=== PATIENT | female | born 1975 | race Caucasian/White ===

== ENCOUNTER 2021-07-01 07:44 | Outpatient (REF) | payer BC, SELFPAY ==
--- NOTE | ~2021-07-01 | MM_ITS ---
EXAMINATION: MM SCREENING DIGITAL BREAST TOMOSYNTHESIS, BILATERAL CLINICAL INFORMATION: Screening. Asymptomatic. Family history breast cancer including mother. The lifetime risk of breast cancer based on the Tyrer-Cuzick Model is 22%. COMPARISON: Mammography: 04/30/2015, 04/25/2015 (baseline), right breast ultrasound 04/30/2015. TECHNIQUE: Digital breast tomosynthesis is performed in both the craniocaudal and mediolateral oblique views along with computer-aided detection (CAD). Synthesized 2D images are generated from the tomosynthesis. FINDINGS: There are scattered areas of fibroglandular density (ACR BI-RADS breast composition Category b). Right breast cysts noted on prior study are decreased to resolved. Parenchymal pattern is otherwise similar to prior exam. There is no developing density or interval architectural abnormality or abnormal calcifications. The axilla and skin contours are unremarkable. No significant changes. MM/MM tomosynthesis screening BI IMPRESSION: No mammographic evidence of malignancy. ASSESSMENT: BI-RADS 1: Negative RECOMMENDATION: 1. Routine annual mammography screening. 2. The lifetime risk of breast cancer based on the Tyrer-Cuzick Model is 22%. Additional annual adjunct screening with breast MRI may be of benefit in women with a risk score of 20% or greater. This patient's information was entered into a reminder system with a target due date for their next mammogram.
== END 2021-07-01 07:45 | disposition home or self-care (01) ==
LOC: HO.MAMMO 07:44
PROVIDERS: PCP Internal Medicine; Visit Provider Internal Medicine
DX: Z12.31 Encounter for screening mammogram for malignant neoplasm of breast (principal)
CPT/HCPCS: 77063; 77067

== ENCOUNTER 2024-05-12 22:52 | Emergency (ER) | payer BC, SELFPAY ==
--- NOTE | ~2024-05-12 | CT_ITS ---
CLINICAL HISTORY: L flank pain s p lithotripsy CT abdomen and pelvis without IV or oral contrast Comparison: None Findings: Lung bases show no active disease. No dependent layering pleural effusions. The heart is not enlarged. Single stone or layering stones spanning a length of 8 mm just proximal to the left UVJ with renal edema and mild hydroureteronephrosis on the left.Less than 5 mm nonobstructing caliceal stones left kidney. No evidence of obstructive uropathy on the right. Punctate caliceal stone right kidney. Evaluation of the liver, spleen, and pancreas demonstrates no lesions. Nodular thickening left adrenal gland. It should be noted that isodense masses may be obscured in the absence of intravenous contrast. Radiopaque gallstones. No pathologically enlarged lymph nodes . No ascites demonstrated. Decompressed urinary bladder. No vertebral body compression fractures or spondylolisthesis. No bony destructive lesions. Impression: 1. Single stone or layering stones spanning a length of 8 mm just proximal to the left UVJ with renal edema and mild hydroureteronephrosis on the left. 2. Bilateral less than 6 mm nonobstructing caliceal stones both kidneys. 3. Nodular thickening left adrenal gland. This document has been electronically signed by: Elmer Arnold MD on 05/13/2024 04:19:04
[2024-05-12 23:30] VITALS: BP 145/90; PULSE 108; RESP 20; TEMP 37; O2SAT 99; BMI 24.2
[2024-05-12 23:44] LABS: MANUAL DIFF FLAG NO
[2024-05-12 23:45] LABS: Basophils Absolute Auto 0.1 X10*3/uL (0.0-0.2); Basophils Percent Auto 0.6 % (0-2); Eosinophils Absolute Auto 0.1 X10*3/uL (0.0-0.4); Eosinophils Percent Auto 0.9 % (0-4); Imm Gran Abs Auto 0.06 X10*3/uL (0.00-0.03); Imm Gran Pct Auto 0.4 % (0.0-0.4); Lymphocytes Absolute Auto 1.9 X10*3/uL (1.2-4.9); Mean Corpuscular Hemoglobin 31.1 pg (27.0-33.0); Mean Corpuscular Volume 88.9 fL (80.0-98.0); Monocytes Absolute Auto 0.9 X10*3/uL (0.1-1.2); Monocytes Percent Auto 6.3 % (2-11); Neutrophils Absolute Auto 11.2 x10*3/uL (2.0-8.3); Neutrophils Percent Auto 78.8 % (45-73); Platelet Count 272 X10*3/uL (160-400); Red Cell Distribution Width 12.9 % (11.0-16.0); White Blood Count 14.2 X10*3/uL (4.8-10.8)
--- NOTE | 2024-05-12 23:57 | MHC.EDTECH ---
bladder scan attempted on patient. No visualization of bladder. Attempted by DOE Rose as well.
[2024-05-12 23:58] LABS: Alanine Aminotransferase 22 U/L (0-31); Albumin Level 4.2 g/dL (3.5-5.0); Alkaline Phosphatase 68 U/L (39-117); Anion Gap 14 (12-20); Aspartate Amino Transferase 18 U/L (5-31); Bilirubin Total 0.2 mg/dL (0.0-1.0); Blood Urea Nitrogen 11 mg/dL (9-16); Calcium 8.8 mg/dL (8.4-10.2); Carbon Dioxide 23 mmol/L (22-29); Chloride 108 mmol/L (96-108); Creatinine Clr Calc Pharmacy 101.1; Estimated Glomerular Filt Rate > 60; Glucose Random 121 mg/dL (60-115); Lipase 15 U/L (8-78); Potassium 4.1 mmol/L (3.3-5.1); Sodium 141 mmol/L (135-145); Total Protein 6.8 g/dL (6.5-8.0)
[2024-05-13 00:07] VITALS: BP 129/88; PULSE 99; RESP 16; TEMP 36.4; O2SAT 95
[2024-05-13] MEDS: Ondansetron ODT 4 MG TAB.RAPDIS TRANSLINGU (00:10)
[2024-05-13 01:39] LABS: Appearance Urine Cloudy; Color Urine Dark Yellow; Glucose Urine UA Negative (Negative); Leukocyte Esterase Urine Small (1+) (Negative); Nitrite Urine Positive (Negative); PH 6.5 (5.0-9.0); Specific Gravity - Urine 1.015 (1.005-1.025); UMIC TRIGGER UACC YES; Urine Blood Large (3+) (Negative); Urine Ketones Negative (Negative); Urine Protein 30 (1+) mg/dL (Neg-Trace)
[2024-05-13 01:47] LABS: Bacteria Urine None Seen (None Seen); Hyaline Casts Urine 0-2 /LPF (0-2); RBC Urine >20 /HPF (0-2); Squamous Epithelial Cell Urine 0-2 /HPF (0-2); UACC Culture Trigger YES; WBC Urine 0-5 /HPF (0-5)
[2024-05-13] MEDS: Ketorolac Tromethamine 30 MG/ML VIAL IVPUSH (01:53)
[2024-05-13] MEDS: 0.9 % Sodium Chloride 1,000 ML 999 ML IV (01:54)
[2024-05-13 02:13] VITALS: BP 123/80; PULSE 96; RESP 16; O2SAT 95
--- NOTE | 2024-05-13 02:38 | ED_ITS ---
HPI - Abdominal Pain General Chief Complaint: Abdominal Pain Stated Complaint: surgery 05/09 kidney stones/no bathroom since 12 Time Seen by Provider: 05/13/24 02:26 Source: patient Mode of arrival: ambulatory Limitations: no limitations History of Present Illness ED Provider: Dr. Genevieve Ramos HPI narrative: Patient comes to the emergency room complaining of left-sided flank pain that started approximately 14 hours ago. Patient states that 3 days ago, patient had a lithotripsy done. Patient states that for the last 2 days, she has had hematuria, no dysuria. However, patient states that she has been passing only drops of urine, no significant amount of fluid. Patient denies fever or chills. Related Data Previous Rx's ?Medication ?Instructions ?Recorded ketorolac 10 mg tablet 10 mg PO TID PRN pain #15 tabs 05/13/24 levofloxacin 500 mg tablet 500 mg PO DAILY #9 tabs 05/13/24 ondansetron HCl 4 mg tablet 4 mg PO Q6H PRN nausea and 05/13/24 vomiting #14 tabs tamsulosin 0.4 mg capsule 0.4 mg PO DAILY #14 caps 05/13/24 Allergies Allergy/AdvReac Type Severity Reaction Status Date / Time No Known Allergies Allergy Verified 05/12/24 23:32 Review of Systems Review of Systems Constitutional : No Weight loss, No Fever, No Chills, No Night Sweats, No Fatigue, No Malaise ENT/Mouth : No Hearing loss, No Ear Pain, No Nasal Congestion, No Sinus Pain, No Hoarseness, No sore throat, No Rhinorrhea, No Swallowing Difficulty Eyes: No Eye Pain, No Swelling, No Redness, No Foreign Body, No Discharge, No Vision Changes Cardiovascular : No Chest Pain, No SOB, No Dyspnea on Exertion, No Orthopnea, No Edema, No Palpitations Respiratory : No Cough, No Sputum, No Wheezing, No Smoke Exposure, No Dyspnea Gastrointestinal : No Nausea, No Vomiting, No Diarrhea, No Constipation, No abdominal Pain, No Hematochezia, No Melena Genitourinary : Complaining of urinating a very small amount. No Dysuria, No Urinary Frequency, No Hematuria, No Urinary Incontinence, No Urgency, complaining of left-sided Flank Pain Musculoskeletal : No joint pain, No Myalgias, No Joint Swelling Skin : No Skin Lesions, No rash Neuro : No Weakness, No Numbness, No Paresthesias, No Loss of Consciousness, No Dizziness, No Headache Psych : No Anxiety/Panic, No Depression, No SI/HI/AH/VH, No Social Issues, Heme/Lymph: No Bruising, No Bleeding,No Lymphadenopathy Endocrine : No Polyuria, No Polydipsia, No Temperature Intolerance [facility] Past Medical History Medical History (Updated 05/13/24 @ 04:42 by Genevieve Ramos MD) Ureterolithiasis Social History Social History Smoked in Last 30 Days: No Use of substances other than those prescribed or required for medical reasons: No Advance Directives: No Advance Directives Information Provided: Yes Do you have a plan to hurt others: No Plan Patient : No Physical Exam ED Vital Signs: Vital Signs - 24 hr 05/12/24 23:30 05/13/24 00:07 05/13/24 02:13 Temperature 98.6 F 97.6 F Pulse Rate 108 H 99 96 Respiratory Rate 20 16 16 Blood Pressure 145/90 H 129/88 123/80 Pulse Oximetry 99 95 95 Oxygen Delivery Method Room Air Room Air Room Air 05/13/24 04:17 Temperature 97.6 F Pulse Rate 87 Respiratory Rate 16 Blood Pressure 117/81 Pulse Oximetry 99 Oxygen Delivery Method Room Air BMI result Body Mass Index 24.2 Const Other: Appearance: Alert. Oriented X3. No acute distress. Eyes: Pupils equal, round and reactive to light. ENT: Pharynx normal. Neck: Normal inspection. Neck supple. No lymph nodes noted. No crepitus CVS: Normal heart rate and rhythm. Pulses normal. Normal S1 and S2 Respiratory: No respiratory distress. Breath sounds normal. No Wheezing. No rales Abdomen: Soft and nontender. No rigidity. No distention. Mild CVA tenderness on the left. Skin: Skin warm and dry. Normal skin color. Normal skin turgor. Extremities: No lower extremity edema. No Lacerations. No Rash Neuro: Oriented X 3. No motor deficit. No sensory deficit. Moving all extremities. No slurred speech. CN 2 through 12 grossly intact Psych: calm, cooperative, normal affect Course Course Course Narrative: Patient received IV Toradol and ondansetron on arrival, patient states that it did help with her pain in the nausea. Medical Decision Making Medical Decision Making [facility] Narrative: My interpretation of labs: White blood cell count 14.2 chemistry within normal limits, LFTs within normal limits, UTI positive. Patient has left-sided flank pain status post lithotripsy. We will obtain a CT scan to rule out hematoma developing. Patient was given 2 L of IV fluids. Patient reports not passing any urine for several hours. Bladder scan on arrival was negative for any fluid in the bladder. Patient also receiving levofloxacin IV. CT scan : There is a single stone or layering stones spanning a length of 8 mm just proximal to left UVJ. -Patient states that before the lithotripsy, her biggest stone was 11 mm Patient states that she is urinating, small amounts. There was no significant amount of urine in the bladder on CT scan. Discussed with the patient to keep drinking fluids. Patient does have a UTI. Combination of flank pain could be secondary to a UTI/pyelonephritis +/- pain from the kidney stones. I discussed with the patient the option of admission. Patient prefers to go home, if the pain does not resolve, she will return to emergency room. Differential Diagnosis Differential Diagnoses: The differential diagnosis associated with the presentation includes (BRENDA, renal hematoma, ureterolithiasis) Admission/Observation Consideration of admission/observation: Escalation of care including admission/observation considered (Given patient's history and presentation, observation has been considered) Lab Data MDM Lab Attestation statement: I reviewed the patient's lab results. 05/12/24 23:38 05/12/24 23:38 Labs: Lab Results 05/12/24 05/13/24 Range/Units 23:38 01:25 WBC 14.2 H (4.8-10.8) X10*3/uL RBC 4.50 (4.20-5.50) X10*6/uL Hgb 14.0 (12.0-16.0) g/dl Hct 40.0 (37.0-47.0) % MCV 88.9 (80.0-98.0) fL MCH 31.1 (27.0-33.0) pg MCHC 35.0 (31.0-35.0) g/dl RDW 12.9 (11.0-16.0) % Plt Count 272 (160-400) X10*3/uL MPV 9.0 L (9.4-12.3) fL Immature Gran % (Auto) 0.4 (0.0-0.4) % Neut % (Auto) 78.8 H (45-73) % Lymph % (Auto) 13.0 L (20-40) % [place] % (Auto) 6.3 (2-11) % Eos % (Auto) 0.9 (0-4) % Baso % (Auto) 0.6 (0-2) % Lymph # (Auto) 1.9 (1.2-4.9) X10*3/uL [place] # (Auto) 0.9 (0.1-1.2) X10*3/uL Eos # (Auto) 0.1 (0.0-0.4) X10*3/uL Baso # (Auto) 0.1 (0.0-0.2) X10*3/uL Abs Immat Gran (auto) 0.06 H (0.00-0.03) X10*3/uL Absolute Neuts (auto) 11.2 H (2.0-8.3) x10*3/uL Absolute Nucleated RBC 0.000 (0.0-0.012) X10*3/uL Nucleated RBC % (auto) 0.0 (0.0-0.2) /100WBC Sodium 141 (135-145) mmol/L Potassium 4.1 (3.3-5.1) mmol/L Chloride 108 (96-108) mmol/L Carbon Dioxide 23 (22-29) mmol/L Anion Gap 14 (12-20) BUN 11 (9-16) mg/dL Creatinine 0.63 (0.5-1.4) mg/dL Estim Creat Clear Calc 101.1 Estimated GFR > 60 Random Glucose 121 H (60-115) mg/dL Calcium 8.8 (8.4-10.2) mg/dL Total Bilirubin 0.2 (0.0-1.0) mg/dL AST 18 (5-31) U/L ALT 22 (0-31) U/L Alkaline Phosphatase 68 (39-117) U/L Total Protein 6.8 (6.5-8.0) g/dL Albumin 4.2 (3.5-5.0) g/dL Lipase 15 (8-78) U/L Urine Color Dark Yellow Urine Appearance Cloudy Urine pH 6.5 (5.0-9.0) Ur Specific [place] 1.015 (1.005-1.025) Urine Protein 30 (1+) H (Neg-Trace) mg/dL Urine Glucose (UA) Negative (Negative) mg/dL Urine Ketones Negative (Negative) mg/dL Urine Blood Large (3+) H (Negative) Urine Nitrite Positive H (Negative) Ur Leukocyte Esterase Small (1+) H (Negative) Urine RBC >20 H (0-2) /HPF Urine WBC 0-5 (0-5) /HPF Ur Squamous Epith Cells 0-2 (0-2) /HPF Urine Bacteria None Seen (None Seen) Hyaline Casts 0-2 (0-2) /LPF Independent Interpretation I performed an independent interpretation of an: CT Scan Radiology Impression Discussion of test interpretation with radiology: I have reviewed the radiologist's reading. Radiologist Impression: Findings: Lung bases show no active disease. No dependent layering pleural effusions. The heart is not enlarged. Single stone or layering stones spanning a length of 8 mm just proximal to the left UVJ with renal edema and mild hydroureteronephrosis on the left.Less than 5 mm nonobstructing caliceal stones left kidney. No evidence of obstructive uropathy on the right. Punctate caliceal stone right kidney. Evaluation of the liver, spleen, and pancreas demonstrates no lesions. Nodular thickening left adrenal gland. It should be noted that isodense masses may be obscured in the absence of intravenous contrast. Radiopaque gallstones. No pathologically enlarged lymph nodes . No ascites demonstrated. Decompressed urinary bladder. No vertebral body compression fractures or spondylolisthesis. No bony destructive lesions. Impression: 1. Single stone or layering stones spanning a length of 8 mm just proximal to the left UVJ with renal edema and mild hydroureteronephrosis on the left. 2. Bilateral less than 6 mm nonobstructing caliceal stones both kidneys. 3. Nodular thickening left adrenal gland. Medications Administered Discontinued Medications Generic Name Dose Route Start Last Admin Trade Name Freq PRN Reason Stop Dose Admin Sodium Chloride 1,000 mls @ 999 mls/hr 05/13/24 01:45 05/13/24 01:54 Ns IV 05/13/24 02:45 999 mls/hr .Q1H1M DENA Administration Sodium Chloride 1,000 mls @ 999 mls/hr 05/13/24 02:35 05/13/24 03:12 Ns IVCONT 05/13/24 03:35 999 mls/hr .Q1H1M ONE Administration Levofloxacin 500 mg in 100 mls @ 100 mls/hr 05/13/24 02:43 05/13/24 03:11 Levaquin IV 05/13/24 03:42 100 mls/hr ONCE ONE Administration Ketorolac Tromethamine 30 mg 05/13/24 01:32 05/13/24 01:53 Ketorolac Tromethamine 30 Mg/Ml Vial IVPUSH 05/13/24 01:33 30 mg ONCE ONE Administration Ondansetron HCl 4 mg 05/13/24 00:00 05/13/24 00:10 Ondansetron Odt 4 Mg Tab.Rapdis TRANSLINGU 05/13/24 00:01 4 mg ONCE ONE Administration Critical Care Time Critical Care Time Critical Care Time: Yes Total Critical Care Time: 45 Attestation: I have personally provided critical care time. Time includes review of lab data, radiology results, discussion with consultants, and monitoring for potential decompensation. Intervention performed as documented. Discharge Plan Discharge Clinical Impression: Ureterolithiasis Patient Disposition: Home, Self-Care Instructions: Ureteral Stones (ED) Additional Instructions: Please follow-up with your primary care physician tomorrow. If you have any worsening or new symptoms, please return to the emergency room or call 911 Prescriptions: New ketorolac 10 mg tablet 10 mg PO TID PRN (Reason: pain) Qty: 15 0RF Rx Instructions: Do not use this medication with any NSAIDs. Only Tylenol if needed ondansetron HCl 4 mg tablet 4 mg PO Q6H PRN (Reason: nausea and vomiting) Qty: 14 0RF levofloxacin 500 mg tablet 500 mg PO DAILY Qty: 9 0RF tamsulosin 0.4 mg capsule 0.4 mg PO DAILY Qty: 14 0RF Print Language: Syrian
[2024-05-13] MEDS: levoFLOXacin/D5W 500 MG/100 ML PIGGYBACK 100 MG IV (03:11)
[2024-05-13] MEDS: 0.9 % Sodium Chloride 1,000 ML 999 ML IVCONT (03:12)
[2024-05-13 04:17] VITALS: BP 117/81; PULSE 87; RESP 16; TEMP 36.4; O2SAT 99
[2024-05-13 05:31] VITALS: BP 117/81; PULSE 87; RESP 16; TEMP 36.4; O2SAT 99
== END 2024-05-13 05:34 | disposition home or self-care (01) ==
PROVIDERS: Emergency Provider Emergency Medicine; PCP Internal Medicine
DX: N13.6 Pyonephrosis (principal); R10.9 Unspecified abdominal pain; Z87.442 Personal history of urinary calculi
CPT/HCPCS: 36415; 74176; 80053; 81001; 83690; 85025; 87086; 96361; 96365; 96375; 99285; J1885; J1956

== ENCOUNTER → 2024-05-13 02:36 | Outpatient (BNV) | payer BC, SELFPAY | PROVIDERS: Emergency Provider Emergency Medicine; PCP Internal Medicine; Visit Provider Radiology Diagnostic Radiology | DX: N20.0 Calculus of kidney (principal); E27.8 Other specified disorders of adrenal gland | CPT/HCPCS: 74176 ==